=== PATIENT | male | born 1990 | race Caucasian/White ===

== ENCOUNTER 2016-03-03 16:57 | Emergency (ER) | payer MEDICARE ==
[2016-03-03 17:09] VITALS: BP 139/53; O2SAT 95
--- NOTE | 2016-03-03 17:20 | ERPHSYRPT ---
- History of Present Illness Time Seen by Provider: 03/03/16 17:13 Source: patient, family (mom) Exam Limitations: other (mental retardation) Patient Subjective Stated Complaint: PT COMES IN MOTHER STATES PT BEGAN COMPLAINING OF. SORE THROAT THIS AFTER NOON STATED "TAKE ME TO THE ER FOR AN IV " Triage Nursing Assessment: PT ALERT WARM AND DRY RESP EASY NON LABORED PT WATCHING TV DURING TRIAGE. Physician History: Pt is 25 yo with mom c/o sore throat for 1 hr. Pt wants to go to ER for IV. Pt has mental disability. Timing/Duration: abrupt onset Severity: moderate ENT Location: throat Prearrival Treatment: no prearrival treatment Modifying Factors: Improves With: activity Associated Symptoms: fever, sore throat Allergies/Adverse Reactions: amoxicillin [Amoxicillin] Allergy (Verified 06/13/14 18:41) amoxicillin trihydrate [From Augmentin] Adverse Reaction (Verified 06/13/14 18: 41) potassium clavulanate [From Augmentin] Adverse Reaction (Verified 06/13/14 18:41 ) Home Medications: No Reportable Medications [No Reported Medications] 06/14/14 [History] Hx Tetanus, Diphtheria Vaccination/Date Given: Yes Hx Influenza Vaccination/Date Given: Yes Hx Pneumococcal Vaccination/Date Given: No Immunizations Up to Date: Yes - Review of Systems Constitutional: Fever Eyes: No Symptoms Ears, Nose, & Throat: Throat Pain, Painful Swallowing Respiratory: No Cough, No Dyspnea Cardiac: No Chest Pain, No Edema, No Syncope Abdominal/Gastrointestinal: No Abdominal Pain, No Nausea, No Vomiting, No Diarrhea Genitourinary Symptoms: No Dysuria Musculoskeletal: No Back Pain, No Neck Pain Skin: No Rash Neurological: No Dizziness, No Focal Weakness, No Sensory Changes Psychological: No Symptoms Endocrine: No Symptoms Hematologic/Lymphatic: No Symptoms Immunological/Allergic: No Symptoms All Other Systems: Reviewed and Negative - Past Medical History Pertinent Past Medical History: Yes Neurological History: Other ENT History: No Pertinent History Cardiac History: Other Respiratory History: No Pertinent History Endocrine Medical History: No Pertinent History Musculoskeletal History: No Pertinent History GI Medical History: No Pertinent History History: No Pertinent History Psycho-Social History: Other Other Medical History: MYOTONIC DYSTROPHY; 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 - Past Surgical History Past Surgical History: Yes Neuro Surgical History: No Pertinent History Cardiac: Other Respiratory: No Pertinent History Gastrointestinal: No Pertinent History Genitourinary: No Pertinent History Musculoskeletal: Other Male Surgical History: No Pertinent History Other Surgical History: ORAL SURG, OPEN HEART 18 MONTHS - Social History Smoking Status: Never smoker Exposure to second hand smoke: Yes Drug Use: none Patient Lives Alone: No - Nursing Vital Signs Nursing Vital Signs: Initial Vital Signs Temperature 101 F Temperature Source Axillary Pulse Rate 128 Respiratory Rate 18 Blood Pressure 139/53 - Physical Exam General Appearance: mild distress Nasal Exam: discharge Throat Exam: pharynx swelling Neck Exam: supple Cardiovascular/Respiratory Exam: normal breath sounds, regular rate/rhythm Abdominal Exam: non-tender, soft Neurologic Exam: alert, oriented x 3, sensation nml, No motor deficits Skin Exam: normal color, warm, dry SpO2 Interpretation: normal SpO2: 95 Oxygen Delivery: Room Air Ordered Tests: Active Orders 24 hr Category Date Time Status CULTURE, THROAT Stat Lab 03/03/16 17:30 Received STREP SCREEN-BETA A Stat Lab 03/03/16 17:30 Completed Lab/Rad Data: Laboratory Results 03/03/16 Range/Units 17:30 Streptococcus Screen NEGATIVE (Negative) - Progress Counseled pt/family regarding: lab results, diagnosis - Departure Time of Disposition: 18:05 Departure Disposition: Home Clinical Impression: Pharyngitis Condition: Stable Critical Care Time: No Additional Instructions: You have a sore throat caused by a virus. Antibiotics will not be helpful at this time. Take tylenol and ibuprofen as needed. Follow up on Sunday if no improvement.
[2016-03-03 18:21] VITALS: PULSE 100
== END 2016-03-03 18:22 | disposition home or self-care (01) ==
LOC: ED 16:57
DX: J02.9 Acute pharyngitis, unspecified (principal); G71.11 Myotonic muscular dystrophy
CPT/HCPCS: 87070; 87430; 99283

== ENCOUNTER 2016-07-27 13:28 | Emergency (ER) | payer MEDICARE ==
[2016-07-27] MEDS ORDERED: Sodium Chloride 0.9% 1000 ML 1,000 ML IV SCH (13:45)
[2016-07-27] MEDS ORDERED: Zofran 4 MG/2 ML VIAL IV ONE (13:46)
[2016-07-27] MEDS ORDERED: CLINDAMYCIN-D5W 600 MG/50 ML*** 600 MG/50 ML BAG IV STA (13:46)
[2016-07-27] MEDS ORDERED: MORPHINE SULFATE 4 MG INJ IV ONE (13:47)
--- NOTE | 2016-07-27 13:55 | ERPHSYRPT ---
- History of Present Illness Time Seen by Provider: 07/27/16 13:40 Source: patient, family Exam Limitations: clinical condition Patient Subjective Stated Complaint: toothache since yesterday. states cannot get into dentist until august 10. took aspirin last night with some relief but pain is back today. Triage Nursing Assessment: tooth pain right lower side since yesterday. denies fever. right cheek slightly red and swollen Physician History: PATIENT COMPLAINS OF RIGHT LOWER TOOTHACHE SINCE YESTERDAY ASSOCIATED WITH JAW SWELLING. DENIES ASSOCIATED DIFFICULTY BREATHING, SWALLOWING, OR FEVER. PATIENT FINISHED 7 DAY COURSE OF ANTIBIOTICS YESTERDAY. Timing/Duration: gradual onset Severity: moderate ENT Location: dental Prearrival Treatment: no prearrival treatment Associated Symptoms: jaw pain, tooth pain Allergies/Adverse Reactions: amoxicillin [Amoxicillin] Allergy (Verified 07/27/16 13:41) amoxicillin trihydrate [From Augmentin] Adverse Reaction (Verified 07/27/16 13: 41) potassium clavulanate [From Augmentin] Adverse Reaction (Verified 07/27/16 13:41 ) Home Medications: Loratadine 10 mg [Claritin 10 mg] 10 mg PO DAILY 07/27/16 [History] Hx Tetanus, Diphtheria Vaccination/Date Given: No Hx Influenza Vaccination/Date Given: Yes Hx Pneumococcal Vaccination/Date Given: Yes - Review of Systems Constitutional: No Fever, No Chills Eyes: No Symptoms Ears, Nose, & Throat: No Symptoms, Mouth Pain Respiratory: No Symptoms, No Cough, No Dyspnea Cardiac: No Symptoms, No Chest Pain, No Edema, No Syncope Abdominal/Gastrointestinal: No Abdominal Pain, No Nausea, No Vomiting, No Diarrhea Genitourinary Symptoms: No Dysuria Musculoskeletal: No Back Pain, No Neck Pain Skin: No Rash Neurological: No Dizziness, No Focal Weakness, No Sensory Changes Psychological: No Symptoms Endocrine: No Symptoms All Other Systems: Reviewed and Negative - Past Medical History Pertinent Past Medical History: Yes Neurological History: Other ENT History: No Pertinent History Cardiac History: Other Respiratory History: No Pertinent History Endocrine Medical History: No Pertinent History Musculoskeletal History: No Pertinent History GI Medical History: No Pertinent History History: No Pertinent History Psycho-Social History: Other Other Medical History: MYOTONIC DYSTROPHY; 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 - Past Surgical History Past Surgical History: Yes Neuro Surgical History: No Pertinent History Cardiac: Other Respiratory: No Pertinent History Gastrointestinal: No Pertinent History Genitourinary: No Pertinent History Musculoskeletal: Other Male Surgical History: No Pertinent History Other Surgical History: ORAL SURG, OPEN HEART 18 MONTHS - Social History Smoking Status: Never smoker Exposure to second hand smoke: Yes Drug Use: none Patient Lives Alone: No - Nursing Vital Signs Nursing Vital Signs: Initial Vital Signs Temperature 99 F Temperature Source Axillary Pulse Rate 68 Respiratory Rate 16 Blood Pressure [Right Arm] 141/76 Pain Intensity 10 - Physical Exam General Appearance: no apparent distress, alert Eye Exam: bilateral eye: normal inspection, PERRL, EOMI Ear Exam: bilateral ear: auricle normal, canal normal, TM normal Nasal Exam: normal inspection Throat Exam: pharynx normal, dental tenderness (WIDESPREAD DENTAL CARIES), moist mucus membranes, No tonsillar exudate Neck Exam: supple Cardiovascular/Respiratory Exam: normal breath sounds, regular rate/rhythm Abdominal Exam: non-tender, soft Neurologic Exam: alert, oriented x 3, sensation nml, No motor deficits Skin Exam: normal color, warm, dry SpO2: 99 Oxygen Delivery: Room Air Ordered Tests: Active Orders 24 hr Category Date Time Status BLOOD CULTURE Stat Lab 07/27/16 14:20 Received CBC W DIFF Stat Lab 07/27/16 14:20 Completed Medication Summary Generic Name Dose Route Start Last Admin Trade Name Freq PRN Reason Stop Dose Admin Sodium Chloride 1,000 mls @ 250 mls/hr 07/27/16 13:45 07/27/16 14:15 Sodium Chloride 0.9% 1000 Ml IV 08/26/16 13:44 250 mls/hr .Q4H CATHI Administration Discontinued Medications Generic Name Dose Route Start Last Admin Trade Name Freq PRN Reason Stop Dose Admin Clindamycin HCl/Dextrose 600 mg in 50 mls @ 100 mls/hr 07/27/16 13:46 14:15 Clindamycin-D5w 600 Mg/50 Ml IV 07/27/16 14:15 100 mls/hr STAT STA Administration Clindamycin HCl/Dextrose Confirm 07/27/16 14:06 Clindamycin-D5w 600 Mg/50 Ml Administered 07/27/16 14:07 Dose 600 mg in 50 mls @ ud IV .STK-MED ONE Morphine Sulfate 4 mg 07/27/16 13:47 07/27/16 14:15 Morphine Sulfate 4 Mg Inj IV 07/27/16 13:48 4 mg STAT ONE Administration Morphine Sulfate Confirm 07/27/16 14:06 Morphine Sulfate 4 Mg Inj Administered 07/27/16 14:07 Dose 4 mg .ROUTE .STK-MED ONE Ondansetron HCl 4 mg 07/27/16 13:46 07/27/16 14:15 Zofran 4 Mg/2 Ml Vial IV 07/27/16 13:47 4 mg STAT ONE Administration Ondansetron HCl Confirm 07/27/16 14:05 Zofran 4 Mg/2 Ml Vial Administered 07/27/16 14:06 Dose 4 mg .ROUTE .STK-MED ONE Lab/Rad Data: Laboratory Result Diagrams 07/27/16 14:20 Laboratory Results 07/27/16 Range/Units 14:20 WBC 6.4 (4.0-10.5) K/mm3 RBC 5.63 H (4.1-5.6) M/mm3 Hgb 16.6 (12.5-18.0) gm/dl Hct 50.2 H (42-50) % MCV 89.2 (78-100) fl MCH 29.4 (26-32) pg MCHC 33.1 (32-36) g/dl RDW 13.8 (11.5-14.0) % Plt Count 189 (150-450) K/mm3 MPV 11.2 H (6-9.5) fl Gran % 50.8 (36.0-66.0) % Lymphocytes % 36.9 (24.0-44.0) % Monocytes % 11.5 (0.0-12.0) % Eosinophils % 0.6 (0.00-5.0) % Basophils % 0.2 (0.0-0.4) % Basophils # 0.01 (0-0.4) - Progress Progress: pain not gone completely Progress Note: 07/27/16 15:09 PATIENT GIVEN IV NORMAL SALINE 250ML/HR ZOFRAN 4MG, MORPHINE 4MG, CLINDAMYCIN 600MG IVPB Counseled pt/family regarding: lab results, diagnosis, need for follow-up - Departure Time of Disposition: 15:20 Departure Disposition: Home Clinical Impression: DENTAL ABSCESS Condition: Stable Critical Care Time: No Additional Instructions: BEGIN CLINDAMYCIN 300MG EVERY 6 HOURS FOR 10 DAYS. CALL YOUR DENTIST TOMORROW FOR EARLIER APPOINTMENT. TYLENOL #3 EVERY 4 HOURS FOR PAIN DISCOMFORT. RETURN TO EMERGENCY FOR INCREASING JAW SWELLING ONSET OF FEVER OR CHILLS. GIVE TYLENOL OR MOTRIN FOR ONSET OF FEVER. Prescriptions: Codeine Phosphate/APAP #3 [Tylenol #3 Tablet] 1 tab PO Q4H PRN PRN #20 tablet PRN Reason: Pain Clindamycin HCl 300 mg PO QID #40 capsule
[2016-07-27] MEDS ORDERED: Zofran 4 MG/2 ML VIAL ONE (14:05)
[2016-07-27] MEDS ORDERED: Sodium Chloride 0.9% 1000 ML 1,000 ML ONE (14:06)
[2016-07-27] MEDS ORDERED: MORPHINE SULFATE 4 MG INJ ONE (14:06)
[2016-07-27] MEDS ORDERED: CLINDAMYCIN-D5W 600 MG/50 ML*** 600 MG/50 ML BAG IV ONE (14:06)
[2016-07-27 14:22] LABS: BASOPHIL % 0.2 % (0.0-0.4); Eosinophil % 0.6 % (0.00-5.0); Granulocytes % 50.8 % (36.0-66.0); Lymphocytes % 36.9 % (24.0-44.0); Mean Cell Volume 89.2 fl (78-100); Mean Platelet Volume 11.2 fl (6-9.5); Monocytes % 11.5 % (0.0-12.0); Platelet Count 189 K/mm3 (150-450); Red Blood Count 5.63 M/mm3 (4.1-5.6); Red Cell Distribution Width 13.8 % (11.5-14.0); White Blood Count 6.4 K/mm3 (4.0-10.5)
[2016-07-27 14:28] LABS: Mean Corpuscular Hemoglobin 29.4 pg (26-32)
[2016-07-27 15:15] VITALS: BP 134/69; PULSE 94
[2016-07-27 15:18] VITALS: O2SAT 99
== END 2016-07-27 15:27 | disposition home or self-care (01) ==
LOC: ED 13:28
DX: K04.7 Periapical abscess without sinus (principal)
CPT/HCPCS: 36415; 85025; 87040; 96360; 96361; 96365; 96374; 96375; 99284; J2270; J2405

== ENCOUNTER 2021-01-07 16:47 | Observation (INO) | payer MEDICARE ==
[2021-01-07] MEDS ORDERED: Zofran 4 MG/2 ML VIAL IV ONE (17:35)
[2021-01-07] MEDS ORDERED: Sodium Chloride 0.9% 1000 ML 1,000 ML IV STA ×2 (17:35→20:54)
[2021-01-07] MEDS ORDERED: Zofran 4 MG/2 ML VIAL ONE (17:47)
[2021-01-07] MEDS ORDERED: Sodium Chloride 0.9% 1000 ML 1,000 ML ONE ×2 (17:48→20:54)
[2021-01-07 18:06] LABS: Hematocrit 45.2 % (42-50); Hemoglobin 14.2 gm/dl (12.5-18.0); Mean Cell Volume 92.1 fl (78-100); Mean Corpuscular Hemoglobin 28.9 pg (26-32); Mean Corpuscular Hgb Concent. 31.4 g/dl (32-36); Mean Platelet Volume 11.4 fl (7.5-11.0); Platelet Count 145 K/mm3 (150-450); Red Blood Count 4.91 M/mm3 (4.1-5.6); Red Cell Distribution Width 14.6 % (11.5-14.0); White Blood Count 13.4 K/mm3 (4.0-10.5)
[2021-01-07 18:19] LABS: ALBUMIN 3.5 g/dL (3.5-5.0); ALKALINE PHOSPHATASE 290 U/L (38-126); ANION GAP 13.2 MEQ/L (5-15); BLOOD UREA NITROGEN 15 mg/dL (9-20); CHLORIDE 103 mmol/L (98-107); Calcium 8.3 mg/dL (8.4-10.2); Carbon Dioxide 29 mmol/L (22-30); Creatinine 1 0.77 mg/dL (0.66-1.25); EST GLOMERULAR FILTRATION RATE > 60.0 ML/MIN; Glucose 103 mg/dL (74-106); SGOT/AST 214 U/L (17-59); SGPT/ALT 244 U/L (0-50); SODIUM 141 mmol/L (137-145); Total Protein 7.1 g/dL (6.3-8.2)
--- NOTE | 2021-01-07 18:27 | ERPHSYRPT ---
- History of Present Illness Source: patient, family Exam Limitations: no limitations Patient Subjective Stated Complaint: Vomiting Triage Nursing Assessment: Patient ambulated back to ED and transferred self to bed. Patient A+O X3. Patient's skin flushed, warm and dry. Patient has dx of Autism. Patient's step dad reports patient not feeling well today. Patient has slept a lot today, which is unusual. Patient also has fever, cough and has vomited X 2 clear liquid today. Lungs clear a/p mandeep. Patient denies pain or discomfort. Timing/Duration: yesterday Cough Quality/Degree: moderate Possible Cause: no prior episodes Modifying Factors: Improves With: coughing Hx Tetanus, Diphtheria Vaccination/Date Given: No Hx Influenza Vaccination/Date Given: No Hx Pneumococcal Vaccination/Date Given: Yes Immunizations Up to Date: Yes <BROWN PRESTON - Last Filed: 01/07/21 18:46> <TOSHIA LORENZANA - Last Filed: 01/07/21 21:24> - History of Present Illness Time Seen by Provider: 01/07/21 17:25 Physician History: Patient is a 30-year-old male who has a history of autism who presents with his father who reports that he has been sleeping excessively the last 2 days running fevers coughing and is vomited once yesterday and once today. The patient himself is conversant and states that he has no pain at the present time. (BROWN PRESTON) Allergies/Adverse Reactions: amoxicillin [Amoxicillin] Allergy (Verified 01/07/21 17:09) amoxicillin trihydrate [From Augmentin] Adverse Reaction (Verified 01/07/21 17:09) potassium clavulanate [From Augmentin] Adverse Reaction (Verified 01/07/21 17:09) Home Medications: No Reportable Medications [No Reported Medications] 01/07/21 [History] Travel Risk - International Travel Have you traveled outside of the country in past 3 weeks: No - Coronavirus Screening Are you exhibiting any of the following symptoms?: Yes Symptoms: Fever, Cough: New Onset, Vomiting/Diarrhea - Vaccine Status Have you recieved a Covid-19 vaccination: No <BROWN PRESTON - Last Filed: 01/07/21 18:46> - Review of Systems Constitutional: Fever, Fatigue, Lethargy, Malaise, No Chills Eyes: No Symptoms Ears, Nose, & Throat: No Symptoms Respiratory: Cough, No Dyspnea Cardiac: No Chest Pain, No Edema, No Syncope Abdominal/Gastrointestinal: Nausea, Vomiting, No Abdominal Pain, No Diarrhea Genitourinary Symptoms: No Dysuria Musculoskeletal: No Back Pain, No Neck Pain Skin: No Rash Neurological: No Dizziness, No Focal Weakness, No Sensory Changes Psychological: No Symptoms Endocrine: No Symptoms All Other Systems: Reviewed and Negative <BROWN PRESTON - Last Filed: 01/07/21 18:46> - Past Medical History Pertinent Past Medical History: Yes Neurological History: Other ENT History: No Pertinent History Cardiac History: Other Respiratory History: No Pertinent History Endocrine Medical History: No Pertinent History Musculoskeletal History: No Pertinent History GI Medical History: No Pertinent History History: No Pertinent History Psycho-Social History: Other Other Medical History: HX OF PATENT DUCTUS AT BUT CLOSED AT 18 MONTHS. Autism - Past Surgical History Past Surgical History: Yes Neuro Surgical History: No Pertinent History Cardiac: Other Respiratory: No Pertinent History Gastrointestinal: No Pertinent History Genitourinary: No Pertinent History Musculoskeletal: Other Male Surgical History: No Pertinent History Other Surgical History: ORAL SURG, OPEN HEART 18 MONTHS - Social History Smoking Status: Never smoker Exposure to second hand smoke: No Drug Use: none Patient Lives Alone: No <BROWN PRESTON - Last Filed: 01/07/21 18:46> - Physical Exam General Appearance: mild distress, alert Eye Exam: PERRL/EOMI, eyes nml inspection Ears, Nose, Throat Exam: normal ENT inspection, TMs normal, pharynx normal, moist mucous membranes Neck Exam: normal inspection, non-tender, supple, full range of motion Respiratory Exam: normal breath sounds, lungs clear, No respiratory distress Cardiovascular Exam: regular rate/rhythm, normal heart sounds Gastrointestinal/Abdomen Exam: soft, normal bowel sounds, No tenderness Back Exam: normal inspection, No CVA tenderness, No vertebral tenderness Extremity Exam: normal inspection, normal range of motion Neurologic Exam: alert, oriented x 3, cooperative, normal mood/affect, sensation nml, No motor deficits Skin Exam: normal color, warm, dry, No rash Lymphatic Exam: No adenopathy SpO2 Interpretation: normal SpO2: 92 O2 Delivery: Room Air <BROWN PRESTON - Last Filed: 01/07/21 18:46> - Nursing Vital Signs Nursing Vital Signs: Initial Vital Signs Temperature 100.8 F 01/07/21 17:10 Pulse Rate 135 H 01/07/21 17:10 Respiratory Rate 20 01/07/21 17:10 Blood Pressure 117/93 01/07/21 17:10 O2 Sat by Pulse Oximetry 95 01/07/21 17:10 Pain Scale Pain Intensity 0 - Course Nursing assessment & vital signs reviewed: Yes - Radiology Exams Chest X-ray Interpretation: Interpreted by me, Other (Questionable left lower lobe infiltrate) <BROWN PRESTON - Last Filed: 01/07/21 18:46> Ordered Tests: Active Orders 24 hr Category Date Time Status EKG-ER Only STAT Care 01/07/21 17:35 Active IV Insertion STAT Care 01/07/21 17:35 Active ABDOMEN AND PELVIS W CONTRAST [CT] Stat Exams 01/07/21 19:22 Taken CHEST 1 VIEW (PORTABLE) Stat Exams 01/07/21 17:52 Taken BLOOD CULTURE Stat Lab 01/07/21 17:59 Received CBC W DIFF Stat Lab 01/07/21 17:30 Completed CMP Stat Lab 01/07/21 17:30 Completed INFLUENZA A+B EDWARDO Stat Lab 01/07/21 17:55 Completed Lactic Acid Stat Lab 01/07/21 17:35 Completed Lactic Acid Stat Lab 01/07/21 19:50 Received Manual Differential NC Stat Lab 01/07/21 17:30 Completed PROCALCITONIN Stat Lab 01/07/21 17:30 Completed TROPONIN Q3H Lab 01/07/21 18:30 Completed TROPONIN Q3H Lab 01/07/21 21:30 Ordered UA W/RFX UR CULTURE Stat Lab 01/07/21 17:37 Ordered Transfer Order Routine Transfer 01/07/21 Ordered Medication Summary Generic Name Dose Route Start Last Admin Trade Name Freq PRN Reason Stop Dose Admin Sodium Chloride 1,000 mls @ 999 mls/hr 01/07/21 20:54 01/07/21 20:55 Sodium Chloride 0.9% 1000 Ml IV 01/07/21 21:54 999 mls/hr .Q1H1M STA Administration Metronidazole 500 mg in 100 mls @ 200 mls/hr 01/07/21 21:09 Flagyl 500 Mg Ivpb IV 01/07/21 21:38 STAT STA Discontinued Medications Generic Name Dose Route Start Last Admin Trade Name Freq PRN Reason Stop Dose Admin Acetaminophen 1,000 mg 01/07/21 20:33 01/07/21 20:40 Acetaminophen 500 Mg Tablet PO 01/07/21 20:34 1,000 mg STAT STA Administration Acetaminophen Confirm 01/07/21 20:39 Acetaminophen 500 Mg Tablet Administered 01/07/21 20:40 Dose 1,000 mg .ROUTE .STK-MED ONE Acetaminophen 975 mg 01/07/21 20:45 01/07/21 20:49 Acetaminophen 650 Mg Supp.Rect SD 01/07/21 20:46 975 mg STAT ONE Administration Acetaminophen Confirm 01/07/21 20:48 Acetaminophen 650 Mg Supp.Rect Administered 01/07/21 20:49 Dose 1,300 mg .ROUTE .STK-MED ONE Sodium Chloride 1,000 mls @ 999 mls/hr 01/07/21 17:35 01/07/21 18:51 Sodium Chloride 0.9% 1000 Ml IV 01/07/21 18:35 Infused .Q1H1M STA Infusion Sodium Chloride Confirm 01/07/21 17:48 Sodium Chloride 0.9% 1000 Ml Administered 01/07/21 17:49 Dose 1,000 mls @ ud .ROUTE .STK-MED ONE Levofloxacin/Dextrose 750 mg in 150 mls @ 100 mls/hr 01/07/21 19:46 01/07/21 20:22 Levofloxacin 750mg/150ml D5w IV 01/07/21 21:15 100 mls/hr STAT STA 100 mls/hr Administration Levofloxacin/Dextrose Confirm 01/07/21 20:20 Levofloxacin 750mg/150ml D5w Administered 01/07/21 20:21 Dose 750 mg in 150 mls @ ud IV .STK-MED ONE Sodium Chloride Confirm 01/07/21 20:54 Sodium Chloride 0.9% 1000 Ml Administered 01/07/21 20:55 Dose 1,000 mls @ ud .ROUTE .STK-MED ONE Ondansetron HCl 4 mg 01/07/21 17:35 01/07/21 17:49 Ondansetron Hcl 4 Mg/2 Ml Vial IV 01/07/21 17:36 4 mg STAT ONE Administration Ondansetron HCl Confirm 01/07/21 17:47 Ondansetron Hcl 4 Mg/2 Ml Vial Administered 01/07/21 17:48 Dose 4 mg .ROUTE .STK-MED ONE Lab/Rad Data: Laboratory Result Diagrams 01/07/21 17:30 01/07/21 17:30 Laboratory Results 01/07/21 01/07/21 01/07/21 Range/Units 18:30 17:55 17:55 WBC (4.0-10.5) K/mm3 RBC (4.1-5.6) M/mm3 Hgb (12.5-18.0) gm/dl Hct (42-50) % MCV (78-100) fl MCH (26-32) pg MCHC (32-36) g/dl RDW (11.5-14.0) % Plt Count (150-450) K/mm3 MPV (7.5-11.0) fl Segmented Neutrophils (36.-66.) % Band Neutrophils (0.0-2.0) % Lymphocytes (Manual) (24-44) % Monocytes (Manual) (0.0-12.0) % Metamyelocytes % Atypical Lymphocytes % Platelet Estimate (NORMAL) RBC Morphology Sodium (137-145) mmol/L Potassium (3.5-5.1) mmol/L Chloride (98-107) mmol/L Carbon Dioxide (22-30) mmol/L Anion Gap (5-15) MEQ/L BUN (9-20) mg/dL Creatinine (0.66-1.25) mg/dL Estimated GFR ML/MIN Glucose (74-106) mg/dL Lactic Acid (0.4-2.0) Calcium (8.4-10.2) mg/dL Total Bilirubin (0.2-1.3) mg/dL AST (17-59) U/L ALT (0-50) U/L Alkaline Phosphatase (38-126) U/L Troponin I < 0.012 (0.000-0.034) ng/mL Serum Total Protein (6.3-8.2) g/dL Albumin (3.5-5.0) g/dL Procalcitonin (0.030-0.080) ng/mL Influenza Type A Ag NEGATIVE (NEGATIVE) Influenza Type B Ag NEGATIVE (NEGATIVE) Group A Strep Antibody NOT DETECTED (NEGATIVE) 01/07/21 01/07/21 01/07/21 Range/Units 17:35 17:30 17:30 WBC (4.0-10.5) K/mm3 RBC (4.1-5.6) M/mm3 Hgb (12.5-18.0) gm/dl Hct (42-50) % MCV (78-100) fl MCH (26-32) pg MCHC (32-36) g/dl RDW (11.5-14.0) % Plt Count (150-450) K/mm3 MPV (7.5-11.0) fl Segmented Neutrophils (36.-66.) % Band Neutrophils (0.0-2.0) % Lymphocytes (Manual) (24-44) % Monocytes (Manual) (0.0-12.0) % Metamyelocytes % Atypical Lymphocytes % Platelet Estimate (NORMAL) RBC Morphology Sodium 141 (137-145) mmol/L Potassium 4.0 (3.5-5.1) mmol/L Chloride 103 (98-107) mmol/L Carbon Dioxide 29 (22-30) mmol/L Anion Gap 13.2 (5-15) MEQ/L BUN 15 (9-20) mg/dL Creatinine 0.77 (0.66-1.25) mg/dL Estimated GFR > 60.0 ML/MIN Glucose 103 (74-106) mg/dL Lactic Acid 2.7 H (0.4-2.0) Calcium 8.3 L (8.4-10.2) mg/dL Total Bilirubin 2.30 H (0.2-1.3) mg/dL AST 214 H (17-59) U/L ALT 244 H (0-50) U/L Alkaline Phosphatase 290 H (38-126) U/L Troponin I (0.000-0.034) ng/mL Serum Total Protein 7.1 (6.3-8.2) g/dL Albumin 3.5 (3.5-5.0) g/dL Procalcitonin 0.576 H (0.030-0.080) ng/mL Influenza Type A Ag (NEGATIVE) Influenza Type B Ag (NEGATIVE) Group A Strep Antibody (NEGATIVE) 01/07/21 Range/Units 17:30 WBC 13.4 H (4.0-10.5) K/mm3 RBC 4.91 (4.1-5.6) M/mm3 Hgb 14.2 (12.5-18.0) gm/dl Hct 45.2 (42-50) % MCV 92.1 (78-100) fl MCH 28.9 (26-32) pg MCHC 31.4 L (32-36) g/dl RDW 14.6 H (11.5-14.0) % Plt Count 145 L (150-450) K/mm3 MPV 11.4 H (7.5-11.0) fl Segmented Neutrophils 25 L (36.-66.) % Band Neutrophils 9 H (0.0-2.0) % Lymphocytes (Manual) 46 H (24-44) % Monocytes (Manual) 6 (0.0-12.0) % Metamyelocytes 2 % Atypical Lymphocytes 12 % Platelet Estimate NORMAL (NORMAL) RBC Morphology NORMAL Sodium (137-145) mmol/L Potassium (3.5-5.1) mmol/L Chloride (98-107) mmol/L Carbon Dioxide (22-30) mmol/L Anion Gap (5-15) MEQ/L BUN (9-20) mg/dL Creatinine (0.66-1.25) mg/dL Estimated GFR ML/MIN Glucose (74-106) mg/dL Lactic Acid (0.4-2.0) Calcium (8.4-10.2) mg/dL Total Bilirubin (0.2-1.3) mg/dL AST (17-59) U/L ALT (0-50) U/L Alkaline Phosphatase (38-126) U/L Troponin I (0.000-0.034) ng/mL Serum Total Protein (6.3-8.2) g/dL Albumin (3.5-5.0) g/dL Procalcitonin (0.030-0.080) ng/mL Influenza Type A Ag (NEGATIVE) Influenza Type B Ag (NEGATIVE) Group A Strep Antibody (NEGATIVE) - Progress Progress: unchanged Air Movement: good Blood Culture(s) Obtained: No Antibiotics given: No <BROWN PRESTON - Last Filed: 01/07/21 18:46> - Progress Progress: improved Air Movement: good Blood Culture(s) Obtained: Yes Antibiotics given: Yes Discussed with : Mya Will see patient in: hospital (observation) Counseled pt/family regarding: lab results, diagnosis, need for follow-up, rad results <TOSHIA LORENZANA - Last Filed: 01/07/21 21:24> - Progress Progress Note: 01/07/21 21:22 30 years old with muscular dystrophy is checked out to me at shift change with pending work-up. Patient presented with fever chills vomiting and some cough congestion. Has negative Covid test done in the ER. Has left-sided infiltrative process with a white count of 13 and a lactate of 2.4 and elevated liver enzymes/bilirubin. Obtain CT abdomen pelvis with contrast which showed bilateral atelectasis with some effusion and contracted gallbladder with pericholecystic fluid suggesting acute acalculous cholecystitis. He is given a dose of Levaquin and Flagyl. Patient is feeling better on my evaluation. Discussed with Dr. Olivier, reviewed history, work-up and patient is accepted for admission. We will keep him n.p.o. and continue with IV fluids. (TOSHIA LORENZANA) - Departure Departure Disposition: Observation Critical Care Time: No <BROWN PRESTON - Last Filed: 01/07/21 18:46> - Departure Departure Disposition: Observation Critical Care Time: No <TOSHIA LORENZANA - Last Filed: 01/07/21 21:24> - Departure Clinical Impression: Left lower lobe pneumonia, Acute acalculous cholecystitis Condition: Stable Referrals: THADDEUS CLAYTON, PREMA [Primary Care Provider] - Follow up/PCP as directed
[2021-01-07 18:28] LABS: INFLUENZA A NEGATIVE (NEGATIVE); INFLUENZA B NEGATIVE (NEGATIVE)
[2021-01-07 18:36] LABS: ATYPICAL LYMPHS 12 %; BAND 9 % (0.0-2.0); Lymphocytes 46 % (24-44); Metamyelocyte 2 %; Monocyte 6 % (0.0-12.0); Neutrophils 25 % (36.-66.); Total Cells Counted 100
[2021-01-07 18:37] LABS: Platelet Estimate NORMAL (NORMAL)
[2021-01-07] MEDS ORDERED: LEVOFLOXACIN 750MG/150ML D5W 750 MG/150 ML BAG IV STA (19:46)
[2021-01-07] MEDS ORDERED: LEVOFLOXACIN 750MG/150ML D5W 750 MG/150 ML BAG IV ONE (20:20)
[2021-01-07] MEDS ORDERED: TYLENOL EXTRA STRENGTH 500 MG PO STA (20:33)
[2021-01-07] MEDS ORDERED: TYLENOL EXTRA STRENGTH 500 MG ONE (20:39)
[2021-01-07] MEDS ORDERED: FEVERALL 650 MG PR ONE (20:45)
[2021-01-07] MEDS ORDERED: FEVERALL 650 MG ONE (20:48)
[2021-01-07] MEDS ORDERED: FLAGYL 500 MG IVPB 500 MG/100 ML BAG IV STA (21:09)
[2021-01-07] MEDS ORDERED: FLAGYL 500 MG IVPB 500 MG/100 ML BAG IV ONE (21:24)
[2021-01-07] MEDS ORDERED: SUBLIMAZE 100 MCG/2 ML IV PRN (22:47)
[2021-01-07] MEDS ORDERED: Zofran 4 MG/2 ML VIAL IV PRN (22:47)
[2021-01-08] MEDS: FLAGYL 500 MG IVPB 500 MG/100 ML BAG IV SCH ×3 (00:12→11:34)
[2021-01-08] MEDS: Sodium Chloride 0.9% 1000 ML 1,000 ML IV SCH ×2 (00:12→08:33)
[2021-01-08 05:50] LABS: Hematocrit 40.6 % (42-50); Hemoglobin 12.5 gm/dl (12.5-18.0); Mean Cell Volume 93.3 fl (78-100); Mean Corpuscular Hemoglobin 28.7 pg (26-32); Mean Corpuscular Hgb Concent. 30.8 g/dl (32-36); Mean Platelet Volume 11.1 fl (7.5-11.0); Platelet Count 116 K/mm3 (150-450); Red Blood Count 4.35 M/mm3 (4.1-5.6); Red Cell Distribution Width 14.7 % (11.5-14.0); White Blood Count 9.5 K/mm3 (4.0-10.5)
[2021-01-08 06:20] LABS: ALBUMIN 2.7 g/dL (3.5-5.0); ALKALINE PHOSPHATASE 222 U/L (38-126); ANION GAP 10.3 MEQ/L (5-15); BLOOD UREA NITROGEN 10 mg/dL (9-20); CHLORIDE 107 mmol/L (98-107); Calcium 7.2 mg/dL (8.4-10.2); Carbon Dioxide 29 mmol/L (22-30); Creatinine 1 0.64 mg/dL (0.66-1.25); EST GLOMERULAR FILTRATION RATE > 60.0 ML/MIN; Glucose 77 mg/dL (74-106); Potassium 3.4 mmol/L (3.5-5.1); SGOT/AST 152 U/L (17-59); SGPT/ALT 193 U/L (0-50); SODIUM 143 mmol/L (137-145); Total Protein 5.8 g/dL (6.3-8.2)
--- NOTE | 2021-01-08 09:31 | XRAY ---
Indication: Fever and cough. Comparison: August 07, 2020. Portable chest demonstrates new CT proven bibasilar ATX/effusions. Remaining heart, lungs, and bony thorax unremarkable with stable incidental left hilar surgical clips.
--- NOTE | 2021-01-08 09:31 | XRAY ---
Indication: Nausea, vomiting, and fever 2 days. Multiple contiguous axial images obtained through the abdomen and pelvis using 80 cc Isovue 370 contrast. Comparison: June 11, 2014. Lung bases demonstrates new bibasilar subsegmental atelectasis and tiny effusions. Heart not enlarged. Noncontrasted stomach and bowel loops appear nonobstructed with normal appendix. Gallbladder is now partially contracted with small pericholecystic fluid. No obvious gallstones or biliary distention. No free air. Spleen is now enlarged measuring 13.7 cm. Remaining liver, gallbladder, pancreas, spleen, adrenal glands, kidneys, ureters, bladder, and aorta are unremarkable. No pathological retroperitoneal lymphadenopathy. Osseous structures intact. No ventral or inguinal hernias. Impression: 1. New partially contracted gallbladder with pericholecystic fluid but no calculus. Rule out acalculous cholecystitis. Gallbladder sonogram may yield further information. 2. New bibasilar subsegmental atelectasis/effusions. 3. New splenomegaly.
[2021-01-08] MEDS ORDERED: Sodium Chloride 0.9% W/ 20 mEq KCl/LITER 1,000 ML IV SCH (10:00)
[2021-01-08] MEDS ORDERED: PROTONIX 40 MG IV IV SCH (10:00)
[2021-01-08 10:28] LABS: AMYLASE 52 U/L (30-110); LIPASE 27 U/L (23-300)
[2021-01-08 12:47] LABS: ATYPICAL LYMPHS 4 %; BAND 5 % (0.0-2.0); Eosinophil 1 % (0.00-3.0); Lymphocytes 23 % (24-44); Monocyte 7 % (0.0-12.0); Neutrophils 60 % (36.-66.); Platelet Estimate NORMAL (NORMAL); Total Cells Counted 100
[2021-01-08 12:48] LABS: Toxic Granulation 1+
[2021-01-08] MEDS ORDERED: Levofloxacin 500MG/100ML D5W 500 MG/100 ML BAG IV SCH (22:00)
[2021-01-17 16:32] VITALS: BP 111/71; PULSE 107; O2SAT 98
--- NOTE | 2021-01-28 20:25 | PCM.SSS ---
History of Present Illness - Chief Complaint Chief Complaint: LLL PNEUMONIA, GALLBLADDER INFECTION Date: 01/08/21 History of Present Illness: is a 30 year old male. Pt, presented to ER with left side chest pain, had previously been diagnosed with pneumonia and started on oral antibiotics at another local ER but was not better after 24 hours and prsented to ER for further evaluation. Pt. was subsequently admitted. - Review of Systems Constitutional: No Fever, No Chills Eyes: No Symptoms Ears, Nose, & Throat: No Symptoms Respiratory: Cough, Short Of Breath Cardiac: Chest Pain Abdominal/Gastrointestinal: No Abdominal Pain, No Nausea, No Vomiting, No Diarrhea Genitourinary Symptoms: No Dysuria Musculoskeletal: No Back Pain, No Neck Pain Skin: No Rash Neurological: No Dizziness, No Focal Weakness, No Sensory Changes Psychological: No Symptoms Endocrine: No Symptoms Hematologic/Lymphatic: No Symptoms Immunological/Allergic: No Symptoms Medications & Allergies Home Medications: Home Medication List Levofloxacin [Levofloxacin 500 MG Tablet] 500 mg PO DAILY 7 Days #7 tablet 01/08/21 [Rx Confirmed 01/14/21] Allergies/Adverse Reactions: Allergies Allergy/AdvReac Type Severity Reaction Status Date / Time amoxicillin [Amoxicillin] Allergy Verified 01/07/21 17:09 amoxicillin trihydrate AdvReac Verified 01/07/21 23:00 [From Augmentin] potassium clavulanate AdvReac Verified 01/07/21 17:09 [From Augmentin] - Past Medical History Past Medical History: Yes Neurological History: Other ENT History: No Pertinent History Cardiac History: Other Respiratory History: No Pertinent History Endocrine Medical History: No Pertinent History Musculoskelatal History: No Pertinent History GI Medical History: No Pertinent History History: No Pertinent History Pyscho-Social History: Other Male Reproductive Disorders: No Pertinent History Comment: HX OF PATENT DUCTUS AT BUT CLOSED AT 18 MONTHS. 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 - Past Surgical History Past Surgical History: Yes Neuro Surgical History: No Pertinent History Cardiac History: Other Respiratory Surgery: No Pertinent History GI Surgical History: No Pertinent History Genitourinary Surgical Hx: No Pertinent History Musculskeletal Surgical Hx: Other Male Surgical History: No Pertinent History Other Surgical History: ORAL SURG, OPEN HEART 18 MONTHS - Social History Smoking Status: Never smoker Exposure to second hand smoke: Yes Alcohol: None Drug Use: none - Physical Exam General Appearance: no apparent distress, alert Neurologic Exam: alert, oriented x 3, cooperative, normal mood/affect, nml cerebellar function, nml station & gait, sensation nml, No motor deficits Eye Exam: PERRL/EOMI, eyes nml inspection Ears, Nose, Throat Exam: normal ENT inspection, pharynx normal, moist mucous membranes Neck Exam: normal inspection, non-tender, supple, full range of motion Respiratory Exam: normal breath sounds, lungs clear, No respiratory distress Cardiovascular Exam: regular rate/rhythm, normal heart sounds, normal peripheral pulses Gastrointestinal/Abdomen Exam: soft, normal bowel sounds, No tenderness, No mass Back Exam: normal inspection, normal range of motion, No CVA tenderness, No vertebral tenderness Extremity Exam: normal inspection, normal range of motion, pelvis stable Skin Exam: normal color, warm, dry, No rash Lymphatic Exam: No adenopathy Results - Labs Lab/Micro Results: Microbiology 01/07/21 17:59 Blood Culture Gram Stain - Final Blood Not Reportable Blood Culture - Final NO GROWTH 01/07/21 17:30 Blood Culture Gram Stain - Final Blood Not Reportable Blood Culture - Final NO GROWTH Assessment/Plan (1) Left lower lobe pneumonia Status: Acute Code(s): J18.9 - PNEUMONIA, UNSPECIFIED ORGANISM Hospital Summary - Hospital Course Hospital Course: Pt. admitted and started on iv abx and iv fluids, pt. felt much better by the following am and ready for discharge. - Vitals & Intake/Output Vital Signs: Vital Signs Temperature 98.0 F 01/08/21 11:57 Pulse Rate 107 H 01/08/21 11:57 Respiratory Rate 18 01/08/21 11:57 Blood Pressure 111/71 01/08/21 11:57 O2 Sat by Pulse Oximetry 98 01/08/21 11:57 - Lab Result Diagrams: 01/08/21 05:30 01/08/21 05:30 Micro Results-Entire Visit: Microbiology 01/07/21 17:59 Blood Culture Gram Stain - Final Blood Not Reportable Blood Culture - Final NO GROWTH 01/07/21 17:30 Blood Culture Gram Stain - Final Blood Not Reportable Blood Culture - Final NO GROWTH - Procedures and Test Procedures and Tests throughout Hospitalization: Therapy Orders & Screens 01/08/21 08:00 ST Screen per Nursing Assess ONCE Comment: Protocol Order Physician Instructions: Greater than [address] Admission Screening Reason For Exam: Triggered on Admission Diagnosis: LLL PNEUMONIA, GALLBLADDER INFECTION CVA/Dyshpagia/Aphasia: No Cognitive Deficits: Yes Dehydration/Nutrition Deficit: Yes Reflux: No Oral-Motor Difficulties: No Pneumonia: Yes Skilled Nursing Resident: No Total Points: 13 - Discharge Discharge Date: 01/08/21 Disposition: Home, Self-Care Condition: Stable Prescriptions: New Levofloxacin [Levofloxacin 500 MG Tablet] 500 mg PO DAILY 7 Days #7 tablet Outpatient Orders: HIDA-GALL BLADDER [NUCMED] Facility: [facility], Location: RADIOLOGY Instructions: HIDA Scan (DC), Gallstones (DC) Additional Instructions: HIDA SCAN scheduled at [facility] on 01/11/21@ 11:00 arrive 15 minutes early at [facility] Patient needs to be nothing by mouth after midnight the night before test and NO narcotics 12 hours prior to test. -SEE DC INSTRUCTIONS FOR HIDA SCAN Follow up with: ТАТЬЯНА HIDALGO [ACTIVE STAFF] - 01/14/21 10:00 am
== END 2021-01-08 14:25 | disposition home or self-care (01) ==
LOC: ED 16:47 → MED SURG 22:42
PROVIDERS: ADMIT Family Medicine; ATTEND Family Medicine
DX: J18.9 Pneumonia, unspecified organism (principal); R11.10 Vomiting, unspecified; R07.9 Chest pain, unspecified; R74.01 Elevation of levels of liver transaminase levels; R10.11 Right upper quadrant pain; Z20.822 Contact with and (suspected) exposure to COVID-19; G71.00 Muscular dystrophy, unspecified; F84.0 Autistic disorder
CPT/HCPCS: 36000; 36415; 71045; 74177; 80053; 82150; 83605; 83690; 84145; 84484; 85025; 87040; 87400; 87651; 93005; 93268; 96374; 99285; G0378; U0003; J1956; J2405; A9270-GY

== ENCOUNTER 2021-01-14 10:42 | Observation (INO) | payer MEDICARE ==
[2021-01-14] MEDS ORDERED: Hydromorphone 1 mg/ml Injection IV PRN (10:55)
[2021-01-14 11:25] LABS: Absolute Neutrophil Ct (ANC) 4.39 (1.4-6.9); BASOPHIL % 0.1 % (0.0-0.4); Basophil (Absolute #) 0.01 (0-0.4); Eosinophil (Absolute #) 0 (0-0.5); Hematocrit 47.1 % (42-50); Hemoglobin 14.7 gm/dl (12.5-18.0); Lymphocyte (Absolute #) 2.21 (1.0-4.6); Mean Cell Volume 91.3 fl (78-100); Mean Corpuscular Hemoglobin 28.5 pg (26-32); Mean Corpuscular Hgb Concent. 31.2 g/dl (32-36); Mean Platelet Volume 10.9 fl (7.5-11.0); Monocyte (Absolute #) 1.01 (0.0-1.3); Monocytes % 13.3 % (0.0-12.0); Neutrophil % 57.6 % (36.0-66.0); Platelet Count 173 K/mm3 (150-450); Red Blood Count 5.16 M/mm3 (4.1-5.6); Red Cell Distribution Width 15.2 % (11.5-14.0); White Blood Count 7.6 K/mm3 (4.0-10.5)
[2021-01-14] MEDS ORDERED: PHARMACY DOSING REQUEST MC ONE (11:34)
[2021-01-14 11:36] LABS: ALBUMIN 3.7 g/dL (3.5-5.0); ALKALINE PHOSPHATASE 220 U/L (38-126); AMYLASE 62 U/L (30-110); ANION GAP 13.5 MEQ/L (5-15); BLOOD UREA NITROGEN 6 mg/dL (9-20); CHLORIDE 101 mmol/L (98-107); Calcium 8.5 mg/dL (8.4-10.2); Carbon Dioxide 29 mmol/L (22-30); Creatinine 1 0.59 mg/dL (0.66-1.25); EST GLOMERULAR FILTRATION RATE > 60.0 ML/MIN; Glucose 119 mg/dL (74-106); LIPASE 91 U/L (23-300); Potassium 3.7 mmol/L (3.5-5.1); SGOT/AST 150 U/L (17-59); SGPT/ALT 115 U/L (0-50); SODIUM 140 mmol/L (137-145); Total Protein 7.6 g/dL (6.3-8.2)
[2021-01-14 11:38] LABS: INFLUENZA A NEGATIVE (NEGATIVE); INFLUENZA B NEGATIVE (NEGATIVE); RESPIRATORY SYNCTIAL VIRUS NEGATIVE (Negative)
[2021-01-14 11:40] LABS: SARS-CoV-2 Xpert Express NEGATIVE (NEGATIVE)
[2021-01-14] MEDS: Dextrose 5% -0.45 NaCl 1000 ML 1,000 ML IV SCH ×2 (11:57→20:18)
--- NOTE | 2021-01-14 12:35 | XRAY ---
Indication: Abdomen pain. Two-dimensional gallbladder sonogram performed. Comparison: None Pancreas not well seen due to overlying bowel gas. Gallbladder normally distended with 1.3 cm mobile stone. No abnormal gallbladder wall thickening or pericholecystic fluid. Common bile duct measures 2.5 mm. No intrahepatic biliary distention. Remaining visualized liver and right kidney are sonographically unremarkable. Right kidney measures 9.7 cm in length. Impression: Cholelithiasis without cholecystitis or biliary distention. Nonvisualization pancreas.
[2021-01-14] MEDS ORDERED: HUMULIN R 100 UNIT in Sodium Chloride 0.9% 100 ML BAG 100 ML IV PRN (14:30)
[2021-01-14] MEDS: Levofloxacin 500MG/100ML D5W 500 MG/100 ML BAG IV SCH (14:45)
[2021-01-14] MEDS ORDERED: TYLENOL 325 MG PO PRN (19:32)
[2021-01-15] MEDS: Dextrose 5% -0.45 NaCl 1000 ML 1,000 ML IV SCH (04:22)
[2021-01-15] MEDS: Levofloxacin 500MG/100ML D5W 500 MG/100 ML BAG IV SCH (09:07)
--- NOTE | 2021-01-15 11:59 | PCM.HP.ADD ---
Addendum to History & Physical - History & Physical Addendum Addendum to History & Physical: This certifies that the History & Physical in the electronic chart (seen by Dr. Tilley 01/14/21) reflects the current health status of the patient. If there are changes in the H&P these changes/exceptions are listed as follows.
--- NOTE | 2021-01-15 12:04 | PCM.NOTE ---
Date and Time: 01/15/21 1159 Subjective Assessment: Pt indicates he has pain in L side, actually. He is quite difficult to understand, which is apparently his baseline. Mentions surgery. Has been NPO for surgery. He had fever to 101.1 last night but current temp 99. On IV levaquin. - Review of Systems Constitutional: Fever Abdominal/Gastrointestinal: Abdominal Pain All Other Systems: Unable due to condition Objective Exam General Appearance: no apparent distress, other (limb contractures) Neurologic Exam: other (speech is slurred which is reported to be baseline) Skin Exam: normal color, warm, dry, No rash Neck Exam: normal inspection Respiratory Exam: normal breath sounds, lungs clear, No crackles/rales, No rhonchi, No wheezing Cardiovascular Exam: regular rate/rhythm, normal heart sounds, No murmur Gastrointestinal/Abdomen Exam: soft, normal bowel sounds, tenderness (diffuse - ?) OBJECTIVE DATA Vital Signs: Vital Signs - 24 hr Temp Pulse Resp BP Pulse Ox 01/15/21 11:30 99.1 F 107 H 18 110/62 96 01/15/21 08:00 99.1 F 107 H 18 110/62 96 01/15/21 04:00 99.3 F 94 H 18 111/69 96 01/14/21 23:51 99.1 F 100 H 18 119/69 97 01/14/21 20:21 98.6 F 01/14/21 19:06 101.1 F 105 H 16 105/63 96 01/14/21 16:00 98.2 F 108 H 19 122/67 94 L Pain Assessment - Last Documented Pain Intensity 2 Pain Scale Used FLACC Intake and Output: Intake & Output 01/12/21 01/13/21 01/14/21 01/15/21 11:59 11:59 11:59 11:59 Intake Total 2287 Output Total 0 Balance 2287 Weight 63.2 kg 63.2 kg Radiology Exams: Radiology Procedures Category Date Time Status GALLBLADDER [US] Routine Exams 01/14/21 12:26 Completed Assessment/Plan (1) Acute acalculous cholecystitis Current Visit: No Status: Acute Assessment & Plan: To have surgery today, thank you. EF was 14% apparently. His liver enzymes and Tbili are elevated. Recheck in a.m. on IV levaquin. Blood cultures are pending. Code(s): K81.0 - ACUTE CHOLECYSTITIS (2) Elevated liver enzymes Current Visit: Yes Status: Acute Assessment & Plan: expect them to improve after surgery. 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 Had a CT scan 01/08/21 with only gallbladder pathology apparent. Code(s): R10.9 - UNSPECIFIED ABDOMINAL PAIN
[2021-01-15] MEDS ORDERED: DIPRIVAN 200 MG/20 ML IV ONE (12:31)
[2021-01-15] MEDS ORDERED: Zemuron 100 MG/10 ML ONE (12:31)
[2021-01-15] MEDS ORDERED: Versed 2 MG/2 ML Injection ONE (12:32)
[2021-01-15] MEDS ORDERED: Lactated Ringers 500 ML IV ONE (12:32)
[2021-01-15] MEDS ORDERED: SUBLIMAZE 250 MCG/5 ML ONE (12:32)
[2021-01-15] MEDS ORDERED: Sensorcaine 0.25% 10 ML ONE (12:38)
[2021-01-15] MEDS ORDERED: CLINDAMYCIN-D5W 900 MG/50 ML*** 900 MG/50 ML BAG IV STA (12:48)
[2021-01-15] MEDS ORDERED: Pre-Attached Lta Kit TP ONE (12:57)
[2021-01-15] MEDS ORDERED: Lactated Ringers 1,000 ML IV SCH (13:00)
[2021-01-15 13:57] LABS: Absolute Neutrophil Ct (ANC) 1.59 (1.4-6.9); Basophil (Absolute #) 0 (0-0.4); Eosinophil % 0.2 % (0.00-5.0); Eosinophil (Absolute #) 0.01 (0-0.5); Hematocrit 45.3 % (42-50); Lymphocyte (Absolute #) 3.81 (1.0-4.6); Lymphocytes % 61.8 % (24.0-44.0); Mean Cell Volume 91.1 fl (78-100); Mean Corpuscular Hemoglobin 28.2 pg (26-32); Mean Corpuscular Hgb Concent. 30.9 g/dl (32-36); Mean Platelet Volume 10.8 fl (7.5-11.0); Monocyte (Absolute #) 0.76 (0.0-1.3); Monocytes % 12.3 % (0.0-12.0); Neutrophil % 25.7 % (36.0-66.0); Platelet Count 175 K/mm3 (150-450); Red Blood Count 4.97 M/mm3 (4.1-5.6); Red Cell Distribution Width 15.3 % (11.5-14.0); White Blood Count 6.2 K/mm3 (4.0-10.5)
[2021-01-15 14:28] LABS: ALBUMIN 3.5 g/dL (3.5-5.0); ALKALINE PHOSPHATASE 202 U/L (38-126); ANION GAP 11.6 MEQ/L (5-15); BLOOD UREA NITROGEN 4 mg/dL (9-20); CHLORIDE 103 mmol/L (98-107); Calcium 8.3 mg/dL (8.4-10.2); Carbon Dioxide 30 mmol/L (22-30); Creatinine 1 0.62 mg/dL (0.66-1.25); EST GLOMERULAR FILTRATION RATE > 60.0 ML/MIN; Glucose 104 mg/dL (74-106); Potassium 3.5 mmol/L (3.5-5.1); SGOT/AST 116 U/L (17-59); SGPT/ALT 110 U/L (0-50); SODIUM 141 mmol/L (137-145); Total Protein 7.5 g/dL (6.3-8.2)
[2021-01-15] MEDS ORDERED: PHENYLEPHRINE HCL ONE ×2 (16:55→18:33)
[2021-01-15] MEDS ORDERED: BRIDION 200MG/2ML IV ONE (17:06)
[2021-01-15] MEDS ORDERED: SUBLIMAZE 100 MCG/2 ML ONE (17:48)
[2021-01-15] MEDS ORDERED: TORAdol 30 mg Injection ONE (17:58)
[2021-01-15] MEDS ORDERED: Dextrose 5%/Water IV Soln. 250 ML 250 ML IV ONE (18:33)
[2021-01-15] MEDS ORDERED: Sodium Chloride 0.9% 500 ML 500 ML IV ONE (18:55)
[2021-01-15 18:59] LABS: A-aADO2 579; ABG HEMOGLOBIN 13.8; ABG POTASSIUM 3.4 (3.5-5.1); ARTERIAL BLD GAS O2 SATURATION 86.8 % (95-100); ARTERIAL BLOOD GAS BASE EXCESS 2.8 (-2.0-2.0); ARTERIAL BLOOD GAS FIO2 100 %; ARTERIAL BLOOD GAS PCO2 61 mmHg (35-45); ARTERIAL BLOOD GAS PO2 58 mmHg (75-100); ARTERIAL BLOOD GAS pH 7.31 (7.35-7.45); CARBOXYHEMOGLOBIN 1.7 % THgb (0.0-6.9); HCO3- 30.7 (22-28); HGB O2 SAT 85.1 g/dF (94-100); Methhemoglobin 0.3 % (1.4-1.5)
[2021-01-15 19:00] LABS: ABG SITE LEFT RADIAL
[2021-01-15] MEDS ORDERED: TYLENOL 325 MG PO PRN (19:35)
[2021-01-15] MEDS ORDERED: Zofran 4 MG/2 ML VIAL IV PRN (19:36)
[2021-01-15] MEDS ORDERED: MORPHINE SULFATE 2 MG INJ IV PRN (19:38)
[2021-01-15] MEDS ORDERED: D5W/0.45NS W/ 20mEq KCl 1000 ML 1,000 ML IV SCH (19:45)
[2021-01-15] MEDS ORDERED: Sodium Chloride 3 ML UD NEBULES IH ONE (20:22)
--- NOTE | 2021-01-15 20:33 | XRAY ---
Indication: Short of breath. Status post cholecystectomy. Comparison: January 07, 2021. Portable chest now markedly underinflated with new near complete opacification left lung due to infiltrate/atelectasis/effusion. Remaining heart and right lung unremarkable again with left hilar surgical clips. New cholecystectomy clips. Comment: Preliminary interpretation made by [facility]. No critical discrepancy.
--- NOTE | 2021-01-15 20:36 | XRAY ---
Indication: Tube placement. Comparison: Taken earlier in the day. Portable chest demonstrates new endotracheal tube tip 4.5 cm above xavi. Right lung better inflated and clear with stable near complete opacification left lung. Heart not enlarged. Comment: Preliminary interpretation made by [facility]. No critical discrepancy.
[2021-01-15] MEDS ORDERED: D5W/0.45NS W/ 20mEq KCl 1000 ML 1,000 ML IV ONE (20:43)
[2021-01-15 21:01] LABS: A-aADO2 308; ABG HEMOGLOBIN 12.5; ABG POTASSIUM 3.1 (3.5-5.1); ARTERIAL BLD GAS O2 SATURATION 99.1 % (95-100); ARTERIAL BLD GAS TIDAL VOLUME 600 cc; ARTERIAL BLOOD GAS BASE EXCESS 4.9 (-2.0-2.0); ARTERIAL BLOOD GAS FIO2 100 %; ARTERIAL BLOOD GAS PCO2 35 mmHg (35-45); ARTERIAL BLOOD GAS PO2 361 mmHg (75-100); ARTERIAL BLOOD GAS VENT MODE A/C; ARTERIAL BLOOD GAS VENT RATE 14 /MIN; ARTERIAL BLOOD GAS pH 7.51 (7.35-7.45); CARBOXYHEMOGLOBIN 0.5 % THgb (0.0-6.9); HCO3- 27.9 (22-28); HGB O2 SAT 97.6 g/dF (94-100)
[2021-01-15 21:02] LABS: ABG SITE ARTERIAL LINE
[2021-01-15] MEDS ORDERED: FENTANYL 500 MCG/10 ML VIAL IV ONE (22:11)
[2021-01-15] MEDS ORDERED: Sodium Chloride 0.9% 150 ML 150 ML IV ONE (22:11)
[2021-01-15] MEDS ORDERED: SUBLIMAZE 1000 Mcg/ 20 Ml*** 1,500 MCG in Sodium Chloride 0.9% 150 ML 120 ML IV SCH (22:15)
--- NOTE | 2021-01-15 22:28 | PCM.DS ---
Discharge Summary Date of Admission: 01/14/21 18:28 Admitting Physician: ТАТЬЯНА HIDALGO Consults: Consults on Case 01/14/21 10:57 Consult Surgery ROUTINE Primary Care Provider: THADDEUS CLAYTON Allergies Allergies amoxicillin [Amoxicillin] Allergy (Verified 01/07/21 17:09) amoxicillin trihydrate [From Augmentin] Adverse Reaction (Verified 01/07/21 23:00) potassium clavulanate [From Augmentin] Adverse Reaction (Verified 01/07/21 17:09) Hospital Summary - Hospital Course Hospital Course: Pt is a 30 yo male pt of Dr. Hidalgo with myotonic dystrophy who was admitted yesterday directly with cholecystitis for cholecystectomy. One week previously he had had a CXR and CT chest, with RUQ u/s and HIDA showing EF of 14%. Yesterday he was ill and vomiting bile so was admitted and put on IV levaquin. Dr. Ari Dozier did surgery today, laparoscopic cholecystectomy. Pt tolerated surgery well, but postoperatively his O2 saturations began dropping. He was placed on bipap but still desaturated. He was re-intubated and placed on the ventilator. CXR showed good placement of ET tube, but opacification of nearly the entire L hemithorax. I was called and came in to evaluate the patient. Pt was on the ventilator with tidal volume 600, RR 16, PEEP 10, O2 100% (initally; when PaO2 was >300 it was turned down to 75%). He was afebrile with bp 92/65, HR 75, 100% O2 sat. ABG with pH 7.51, pCo2 35, O2 361, HCO3 27.9, BE 4.9. Pt on propofol drip. Not on pressors. I spoke with his stepdad, Helder, about transfer and he was in favor, wherever pt needed to go to get the appropriate care. I spoke with [facility] transfer ctr and they had no ICU beds available. I spoke with [facility] transfer ctr and they did not think they had a bed immediately available; this was later confirmed. In the meanwhile, I called [facility] transfer ctr and they did have an ICU bed. I spoke with Dr. Hidalgo, hospitalist, and Dr. Momin, surgery, and Dr. Hidalgo accepted the pt in transfer with Dr. Momin agreeing to consult. - Vitals & Intake/Output Vital Signs: Vital Signs Temperature 98.7 F 01/15/21 22:07 Pulse Rate 76 01/15/21 22:07 Respiratory Rate 14 01/15/21 22:07 Blood Pressure 122/59 01/15/21 22:07 O2 Sat by Pulse Oximetry 100 01/15/21 22:07 Intake & Output: Intake & Output 01/13/21 01/14/21 01/15/21 01/16/21 11:59 11:59 11:59 11:59 Intake Total 2287 0 Output Total 0 Balance 2287 0 Weight 63.2 kg 63.2 kg - Lab Result Diagrams: 01/15/21 13:00 01/15/21 13:00 Lab Results-Last 24 Hrs: Lab Results-Last 24 Hours 01/15/21 01/15/21 01/15/21 Range/Units 13:00 13:00 18:10 WBC 6.2 (4.0-10.5) K/mm3 RBC 4.97 (4.1-5.6) M/mm3 Hgb 14.0 (12.5-18.0) gm/dl Hct 45.3 (42-50) % MCV 91.1 (78-100) fl MCH 28.2 (26-32) pg MCHC 30.9 L (32-36) g/dl RDW 15.3 H (11.5-14.0) % Plt Count 175 (150-450) K/mm3 MPV 10.8 (7.5-11.0) fl Gran % 25.7 L (36.0-66.0) % Eos # (Auto) 0.01 (0-0.5) Absolute Lymphs (auto) 3.81 (1.0-4.6) Absolute Monos (auto) 0.76 (0.0-1.3) Lymphocytes % 61.8 H (24.0-44.0) % Monocytes % 12.3 H (0.0-12.0) % Eosinophils % 0.2 (0.00-5.0) % Basophils % 0.0 (0.0-0.4) % Absolute Granulocytes 1.59 (1.4-6.9) Basophils # 0 (0-0.4) Puncture Site LEFT RADIAL pCO2 61 H* (35-45) mmHg pO2 58 L (75-100) mmHg Base Excess 2.8 H (-2.0-2.0) O2 Saturation 85.1 L (94-100) g/dF ABG pH 7.31 L (7.35-7.45) ABG HCO3 30.7 H* (22-28) ABG O2 Sat (Measured) 86.8 L (95-100) % Erlin Test NOT APPLICABLE A-a Gradient 579 a/A Ratio 0.09 Hemoglobin 13.8 Carboxyhemoglobin 1.7 (0.0-6.9) % THgb Methemoglobin 0.3 L (1.4-1.5) % Temperature 37.0 C POC O2 Flow Rate 100 % Vent Mode Vent Rate /MIN Tidal Volume cc PEEP cmH2O Sodium 141 (137-145) mmol/L Potassium 3.5 3.4 L (3.5-5.1) mmol/L Chloride 103 (98-107) mmol/L Carbon Dioxide 30 (22-30) mmol/L Anion Gap 11.6 (5-15) MEQ/L BUN 4 L (9-20) mg/dL Creatinine 0.62 L (0.66-1.25) mg/dL Estimated GFR > 60.0 ML/MIN Glucose 104 (74-106) mg/dL Calcium 8.3 L (8.4-10.2) mg/dL Total Bilirubin 1.60 H (0.2-1.3) mg/dL AST 116 H (17-59) U/L ALT 110 H (0-50) U/L Alkaline Phosphatase 202 H (38-126) U/L Serum Total Protein 7.5 (6.3-8.2) g/dL Albumin 3.5 (3.5-5.0) g/dL 01/15/ Range/Units 19:15 WBC (4.0-10.5) K/mm3 RBC (4.1-5.6) M/mm3 Hgb (12.5-18.0) gm/dl Hct (42-50) % MCV (78-100) fl MCH (26-32) pg MCHC (32-36) g/dl RDW (11.5-14.0) % Plt Count (150-450) K/mm3 MPV (7.5-11.0) fl Gran % (36.0-66.0) % Eos # (Auto) (0-0.5) Absolute Lymphs (auto) (1.0-4.6) Absolute Monos (auto) (0.0-1.3) Lymphocytes % (24.0-44.0) % Monocytes % (0.0-12.0) % Eosinophils % (0.00-5.0) % Basophils % (0.0-0.4) % Absolute Granulocytes (1.4-6.9) Basophils # (0-0.4) Puncture Site ARTERIAL LINE pCO2 35 (35-45) mmHg pO2 361 H* (75-100) mmHg Base Excess 4.9 H (-2.0-2.0) O2 Saturation 97.6 (94-100) g/dF ABG pH 7.51 H (7.35-7.45) ABG HCO3 27.9 (22-28) ABG O2 Sat (Measured) 99.1 (95-100) % Erlin Test NOT APPLICABLE A-a Gradient 308 a/A Ratio 0.54 Hemoglobin 12.5 Carboxyhemoglobin 0.5 (0.0-6.9) % THgb Methemoglobin 1.0 L (1.4-1.5) % Temperature 37.0 C POC O2 Flow Rate 100 % Vent Mode A/C Vent Rate 14 /MIN Tidal Volume 600 cc PEEP 10.0 cmH2O Sodium (137-145) mmol/L Potassium 3.1 L (3.5-5.1) mmol/L Chloride (98-107) mmol/L Carbon Dioxide (22-30) mmol/L Anion Gap (5-15) MEQ/L BUN (9-20) mg/dL Creatinine (0.66-1.25) mg/dL Estimated GFR ML/MIN Glucose (74-106) mg/dL Calcium (8.4-10.2) mg/dL Total Bilirubin (0.2-1.3) mg/dL AST (17-59) U/L ALT (0-50) U/L Alkaline Phosphatase (38-126) U/L Serum Total Protein (6.3-8.2) g/dL Albumin (3.5-5.0) g/dL - Radiology Exams Ordered Rad Exams-Entire Visit: Radiology Procedures Category Date Time Status CHEST 1 VIEW (PORTABLE) Stat Exams 01/15/21 Completed CHEST 1 VIEW (PORTABLE) Stat Exams 01/15/21 Completed GALLBLADDER [US] Routine Exams 01/14/21 12:26 Completed - Procedures and Test Procedures and Tests throughout Hospitalization: Therapy Orders & Screens 01/15/21 12:04 EKG ROUTINE Comment: Diagnosis: Cholecystitis 01/15/21 18:53 BiPap/CPAP STAT Comment: Diagnosis: Cholecystitis 01/15/21 18:54 Vent Settings [Ventilator Management] STAT Comment: Diagnosis: Cholecystitis 01/15/21 21:10 Oxygen Nasal Cannula 2 lpm Comment: Diagnosis: Cholecystitis Discharge Exam General Appearance: other (pt sedated and ventilated) Respiratory Exam: other (coarse breath sounds and faint rhonchi throughout; has breath sounds bilaterally) Cardiovascular Exam: regular rate/rhythm, normal heart sounds, No murmur Gastrointestinal/Abdomen Exam: soft, other (surgical dressings c/d/i) Extremity Exam: No swelling Skin Exam: normal color, warm, dry, No rash Final Diagnosis/Problem List - Final Discharge Diagnosis/Problem (1) Respiratory failure Current Visit: Yes Status: Acute Assessment & Plan: Very likely mucous plugging; RT did pulmonary hygiene and removed quite a bit of thick mucous. Need pulmonary consultation, which is not available here currently, so transferring out to [facility] for higher level of care. He is on Levaquin IV and did receive 1 dose of clindamycin IV pre-operatively. Code(s): J96.90 - RESPIRATORY FAILURE, UNSP, UNSP W HYPOXIA OR HYPERCAPNIA (2) S/P cholecystectomy Current Visit: Yes Status: Acute Assessment & Plan: POD #0 (immediately post op). Code(s): Z90.49 - ACQUIRED ABSENCE OF OTHER SPECIFIED PARTS OF DIGESTIVE TRACT (3) Elevated liver enzymes Current Visit: Yes Status: Acute Assessment & Plan: have come down slightly - expect to resolve now that the gallbladder has been removed. 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
[2021-01-15] MEDS ORDERED: Propofol 1000 mg/100 ml Bottle IV ONE ×2 (22:49)
[2021-01-16] MEDS ORDERED: SUBLIMAZE 1000 Mcg/ 20 Ml*** 1,500 MCG in Sodium Chloride 0.9% 150 ML 120 ML IV SCH (01:01)
--- NOTE | 2021-01-17 09:16 | CONS ---
CONSULT DATE: 01/14/2021 REASON FOR CONSULT: Gallbladder disease. HISTORY: The patient has right upper quadrant pain. He does not give a very good history. His ultrasound is fairly negative. HIDA scan is 14%. His abdomen does have Radford sign, right upper quadrant tenderness. He did not have any palpable mass. I am not sure how much he really understands intervention but it looks like he is willing to undergo intervention. IMPRESSION: We will probably do a laparoscopic cholecystectomy for gallbladder dyskinesia on Sunday in the early evening.
--- NOTE | 2021-01-17 09:42 | OP ---
SURGERY DATE/TIME: 01/15/2021 1628 PREOPERATIVE DIAGNOSIS: Acute cholecystitis. POSTOPERATIVE DIAGNOSIS: Acute cholecystitis with gangrenous gallbladder. PROCEDURE: Laparoscopic cholecystectomy. SURGEON: Dr. Ari Dozier. ANESTHESIA: General endotracheal tube. ESTIMATED BLOOD LOSS: None. COMPLICATIONS: None. CONDITION: Stable. INDICATIONS: A patient with symptomatic gallbladder disease. DESCRIPTION OF PROCEDURE AND FINDINGS: Taken to surgery. General anesthetic, routine prep and drape. Veress needle inserted. Opening pressure of 1, insufflating pressure 14. Four - 5's. Good visualization. It was acutely edematous and acutely inflamed. It actually is gangrenous in places. Cystic duct defined triply clipped. Cystic artery triply clipped. Gallbladder rolled out of gallbladder fossa. The gallbladder delivered through upper abdominal port. There was a large stone necessary to widen this hole some. It was closed with hole closure device using [id number] 0 Vicryl. CO2 exsufflated. Skin closed with 4-0 Vicryl and Steri-Strips. Findings discussed with Dr. Tilley about the patients x-ray findings yesterday where he apparently had a significant infiltrate preoperatively and was basically arya out. There was no known aspiration as reported by the nursing staff. He basically had to be re-intubated in the recovery room and I am aware of findings of the actions.
[2021-01-17 17:02] VITALS: BP 122/59; PULSE 76; O2SAT 100
== END 2021-01-15 22:50 ==
LOC: MED SURG 10:47 → INTOOBSV 18:28 → OBSVTOIN 18:28 → MED SURG 01-15 18:28 → ICU 01-15 18:28 → UNDODISIN 01-15 22:50
PROVIDERS: ADMIT Family Medicine; ATTEND Family Medicine
DX: K81.0 Acute cholecystitis (principal); K82.A1 Gangrene of gallbladder in cholecystitis; J96.90 Respiratory failure, unspecified, unspecified whether with hypoxia or hypercapnia; J94.2 Hemothorax; R74.8 Abnormal levels of other serum enzymes; G71.11 Myotonic muscular dystrophy; Z20.828 Contact with and (suspected) exposure to other viral communicable diseases
CPT/HCPCS: 0241U; 36415; 36600; 47562; 71045; 76705; 80053; 82150; 82375; 82803; 83690; 85025; 87040; 93005; 94002; G0378; 36620; 88304; J1170; J1885; J1956; J2250; J2370; J2704; J3010